=== PATIENT | female | born 1985 ===

== ENCOUNTER 2017-07-19 17:35 | Emergency (ER) | payer MEDICAID, OTHER ==
[2017-07-19 17:51] VITALS: BMI 27.3
[2017-07-19 17:52] VITALS: RESP 18; O2SAT 100
[2017-07-19 18:11] LABS: RBC URINE 132 /hpf (0-3); URINE BACTERIA RARE (<OCC); URINE BILIRUBIN NEGATIVE (NEGATIVE); URINE BLOOD 3+ (NEGATIVE); URINE COLOR Yellow (YELLOW); URINE GLUCOSE (UA) NORMAL (Normal); URINE KETONE NEGATIVE (NEGATIVE); URINE LEUKOCYTE ESTERASE NEG Leu/uL (Negative); URINE PROTEIN NEGATIVE (NEGATIVE); URINE UROBILINOGEN NORMAL mg/dL (0.2-1.0); WBC URINE 1 /hpf (0-5)
[2017-07-19] MEDS ORDERED: Sodium Chloride 0.9% 1,000 ML IV ONE (18:42)
[2017-07-19 19:09] LABS: BASO # 0.1 K/uL (0.0-0.2); EOS # 0.1 K/uL (0.0-0.7); EOS % 1.5 % (0.0-4.0); HEMATOCRIT 41.2 % (34.0-47.0); LYMPH # 2.2 K/uL (1.0-4.3); LYMPH % 35.8 % (20.0-40.0); MEAN CELL VOLUME 89.3 fL (81.0-99.0); MEAN CORPUSCULAR HEMOGLOBIN 30.7 pg (27.0-31.0); MEAN CORPUSCULAR HGB CONC 34.4 g/dL (33.0-37.0); MEAN PLATELET VOLUME 7.9 fL (7.2-11.7); MONO # 0.5 K/uL (0.0-0.8); MONO % 7.5 % (0.0-10.0); WHITE BLOOD COUNT 6.2 K/uL (4.8-10.8)
[2017-07-19] MEDS ORDERED: Sodium Chloride 0.9% 1,000 ML ONE (19:09)
[2017-07-19 19:17] LABS: CHLORIDE 96 mmol/L (98-107); POTASSIUM 4.1 mmol/L (3.6-5.2); SODIUM 132 mmol/L (132-148)
[2017-07-19 19:19] LABS: GFR AFRICAN-AMERICAN > 60
[2017-07-19 19:20] LABS: ALB/GLOB RATIO 1.2 (1.0-2.1); ALKALINE PHOSPHATASE 37 U/L (38-126); ALT/SGPT 32 U/L (9-52); AST/SGOT 24 U/L (14-36); BILIRUBIN,TOTAL 0.4 mg/dL (0.2-1.3); BLOOD UREA NITROGEN 11 mg/dL (7-17); CARBON DIOXIDE 25 mmol/L (22-30); GLUCOSE,RANDOM 83 mg/dL (65-105); TOTAL PROTEIN 8.2 g/dL (6.3-8.3)
[2017-07-19 19:21] LABS: CALCIUM 9.3 mg/dl (8.6-10.4)
--- NOTE | 2017-07-19 20:26 | US ---
EXAM: US First Trimester, Transabdominal EXAM DATE/TIME: Exam ordered 07/19/2017 6:43 PM CLINICAL HISTORY: 32 years old, female; Pain; complicated by abdominal or pelvic pain and other: Vag bleed / spotting; Lower; First trimester; Gestational age or lmp: 05-30-2017; ; Additional info: Pain/bleeding TECHNIQUE: Real-time transabdominal obstetrical ultrasound of the maternal pelvis and a first trimester with image documentation. COMPARISON: US - PREG 1ST TRIMESTER/OB TV 09/11/2015 11:18:48 AM FINDINGS: Gestation: A single intrauterine gestational sac which measures 3.1 x 2.3 x 2.7 cm for a mean sac diameter of 2.7 cm for a menstrual age of 7 weeks and 3 days. A yolk sac was present. There is a pole with crown rump length measurement of 1 cm for menstrual age of 7 weeks and 1 day. Cardiac activity is noted at a rate of 138 beats per minute. Placenta/amniotic fluid: Cannot be adequately evaluated due to the early gestational age. Uterus/cervix: The uterus measures 11.2 x 5.3 x 7.5 cm. The cervix is 3.7 cm in length. No myometrial mass. Ovaries: The right ovary measures 3.4 x 2.5 x 3.6 cm on transabdominal study. Blood flow seen in the right ovary on color Doppler examination. The left ovary measures 3 x 1.8 x 2.5 cm. Blood flow is seen in the left ovary on pulsed Doppler examination. No mass. Free fluid: No free fluid. IMPRESSION: 1. Single live intrauterine with an estimated menstrual age of 7 weeks and 2 days plus or -0 weeks and 4 days. Expected date of confinement 03/05/2018.
--- NOTE | 2017-07-19 20:34 | C.PDOC ---
Time Seen by Provider: 07/19/17 18:32 Chief Complaint (Nursing): Female Genitourinary History Per: Patient Onset/Duration Of Symptoms: Hrs (today) Current Symptoms Are (Timing): Still Present Severity: Mild Quality Of Discomfort: Unable To Describe, "Pain" Associated Symptoms: Nausea Alleviating Factors: None Additional History Per: Prior Records Abnormal Vaginal Bleeding: Yes Past Medical History Reviewed: Historical Data, Nursing Documentation, Vital Signs Vital Signs: Last Vital Signs Temp 98.3 F 07/19/17 17:46 Pulse 84 07/19/17 17:46 Resp 18 07/19/17 17:46 BP 111/73 07/19/17 17:46 Pulse Ox 100 07/19/17 17:46 - Medical History PMH: Gastritis, Gastrointestinal Ulcer Family History: States: Unknown Family Hx - Social History Hx Tobacco Use: Yes Hx Alcohol Use: No Hx Substance Use: No - Immunization History Hx Tetanus Toxoid Vaccination: No Hx Influenza Vaccination: No Hx Pneumococcal Vaccination: No Review Of Systems Except As Marked, All Systems Reviewed And Found Negative. Constitutional: Negative for: Fever, Weakness Cardiovascular: Negative for: Chest Pain Respiratory: Negative for: Shortness of Breath Gastrointestinal: Negative for: Vomiting Genitourinary: Positive for: Vaginal Bleeding. Negative for: Dysuria Musculoskeletal: Negative for: Neck Pain Skin: Negative for: Rash Neurological: Negative for: Weakness, Numbness Physical Exam - Physical Exam Appears: Non-toxic, No Acute Distress Skin: Normal Color, Warm, Dry, No Rash Head: Atraumatic, Normacephalic Eye(s): bilateral: PERRL, EOMI Neck: Normal ROM, Supple Cardiovascular: Rhythm Regular Respiratory: Normal Breath Sounds, No Accessory Muscle Use Gastrointestinal/Abdominal: Soft, Tenderness (mild suprapubic), No Guarding, No Rebound Back: No CVA Tenderness Extremity: Normal ROM Neurological/Psych: Oriented x3, Normal Motor, Normal Sensation ED Course And Treatment - Laboratory Results Result Diagrams: 07/19/17 19:05 07/19/17 19:05 Interpretation Of Abnormal: Rh negative. Otherwise unremarkable. Urine POC: Positive O2 Sat by Pulse Oximetry: 100 Pulse Ox Interpretation: Normal - CT Scan/US Pelvic US Other Rad Studies (CT/US): Read By Radiologist, Radiology Report Reviewed CT/US Interpretation: IMPRESSION: 1. Single live intrauterine with an estimated menstrual age of 7. weeks and 2 days plus or -0 weeks and 4 days. Expected date of confinement. 03/05/2018. Progress Note: Pt was given Rhogam. Reassessment Condition: Improved Disposition Counseled Patient/Family Regarding: Studies Performed, Diagnosis, Need For Followup - Disposition Disposition: HOME/ ROUTINE Disposition Time: 20:41 Condition: STABLE Additional Instructions: Follow up with your [facility] doctor for further evaluation and treatment. Return to the ER if you develop heavy bleeding, dizziness, worsening of symptoms or if you have any other concerns. Instructions: Threatened Miscarriage (ED) Forms: [employer] (Czech) Print Language: [place] - Clinical Impression Clinical Impression: Rh negative status during , Threatened in first trimester
[2017-07-19 20:45] VITALS: BP 112/71; PULSE 74; TEMP 98.1
== END 2017-07-19 21:24 | disposition home or self-care (01) ==
LOC: C.ER 17:35
DX: O20.0 Threatened abortion (principal); O36.0910 Maternal care for other rhesus isoimmunization, first trimester, not applicable or unspecified; Z3A.01 Less than 8 weeks gestation of pregnancy
CPT/HCPCS: 76801; 80053; 81001; 84702; 84703; 85025; 86850; 86900; 96361; 96374; 96375; 99284; J2765; J2792; J7040